=== PATIENT | male | born 2000 | race Caucasian/White ===

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

== ENCOUNTER 2021-07-22 09:10 | Outpatient (REF) | payer MEDICAID, SELFPAY ==
[2021-07-22 10:43] LABS: COVID-19 Test Positive (Negative)
== END 2021-07-22 09:11 | disposition home or self-care (01) ==
LOC: HO.LAB 09:10
PROVIDERS: Visit Provider Internal Medicine
DX: Z20.822 Contact with and (suspected) exposure to COVID-19 (principal)
CPT/HCPCS: 87635; C9803